=== PATIENT | male | born 1945 | race Caucasian/White ===

== ENCOUNTER 2017-05-03 14:36 | Emergency (ER) | payer OTHER ==
[~2017-05-03] VITALS: Ht 180.3 cm; Wt 151.0 kg
[~2017-05-03 14:36] MED LIST: ALLO300 PO; CLON-481 PO; HYDR50TA15 PO; METO100T PO
[2017-05-03 14:49] VITALS: BP 192/67; PULSE 87; RESP 22; TEMP 97.9; O2SAT 97
[2017-05-03 14:56] VITALS: O2SAT 97
--- NOTE | 2017-05-03 14:59 | PD ---
HPI Chief Complaint: Numbness/Tingling Time Seen by Provider: 14:42 Travel History International Travel<30 days: No Contact w/Intl Traveler<30days: No Traveled to known affect area: No History of Present Illness HPI This patient had a extremely brief episode. He was at home about 45 minutes ago and had a literally 2 second spell where he had a pain as well as paresthesia in his left arm. Started just above his elbow and went down his arm in a strip through the end of the middle finger. No muscle weakness or sensory loss. No other areas were affected. He denies confusion or speech slurring or headache or head injury or fever. Symptoms severity was moderate but extremely brief. No history of CVA or TIA. He takes a baby aspirin daily. He has difficult to control blood pressure. He is 192 systolic at this time [facility] Past Medical History Hx Anticoagulant Therapy: Yes (81 MG ASA) High Cholesterol: Yes Diabetes: Yes (TYPE 2) Patient Takes Glucophage: Yes Diminished Hearing: No Gout: Yes Hypertension: Yes Medical other: Yes (SKIN CA) Immunizations Current: Yes Tetanus Vaccination: > 5 Years Influenza Vaccination: Yes Past Surgical History Eye Surgery: Yes (LENS IMPLANT) Joint Replacement: Yes Social History Alcohol Use: Yes (~2 BEERS DAILY) Tobacco Use: No Substance Use: No Allergies-Medications (Allergen,Severity, Reaction): Coded Allergies: No Known Allergies (Verified , 05/03/17) Reported Meds & Prescriptions Reported Meds & Active Scripts Active Reported Lasix (Furosemide) 20 Mg Tab 20 Mg PO -- Bumetanide 0.5 Mg Tab 0.5 Mg PO DAILY Lipitor (Atorvastatin Calcium) 20 Mg Tab 20 Mg PO HS Flomax (Tamsulosin HCl) 0.4 Mg Cap 0.4 Mg PO HS Allopurinol 300 Mg Tab 300 Mg PO DAILY Amitriptyline (Amitriptyline HCl) 10 Mg Tab 10 Mg PO HS Glimepiride 1 Mg Tab 1 Mg PO DAILY Take with breakfast or first main meal Amlodipine (Amlodipine Besylate) 5 Mg Tab 5 Mg PO DAILY Lisinopril 10 Mg Tab 10 Mg PO BID Metoprolol Tartrate 100 Mg Tab 100 Mg PO BID Hydralazine HCl 25 Mg Tablet 50 Mg PO TID Clonidine (Clonidine HCl) 0.3 Mg Tab 0.3 Mg PO Q8HR Review of Systems General / Constitutional: No: Fever Eyes: No: Visual changes HENT: No: Headaches Cardiovascular: Positive: Edema, No: Chest Pain or Discomfort Respiratory: No: Shortness of Breath Gastrointestinal: No: Abdominal Pain Genitourinary: No: Dysuria Musculoskeletal: Positive: Edema, Pain Skin: No Rash Neurologic: Positive: Paresthesia, No: Weakness Psychiatric: No: Depression Endocrine: No: Polydipsia Hematologic/Lymphatic: No: Easy Bruising Physical Exam Narrative GENERAL: Well-nourished, well-developed patient in no apparent distress. SKIN: Focused skin assessment reveals no rash and nodules. Skin is Warm and dry. Scabbed lesion on the nose where he had skin cancer removed HEAD: Atraumatic. Normocephalic. EYES: Pupils equal and round. No scleral icterus. No injection or drainage. ENT: No nasal bleeding or discharge. Mucous membranes pink and moist. NECK: Trachea midline. No JVD. CARDIOVASCULAR: Regular rate and rhythm. No murmur appreciated. RESPIRATORY: No accessory muscle use. Clear to auscultation. Breath sounds equal bilaterally. GASTROINTESTINAL: Abdomen soft, obese, non-tender, nondistended. Hepatic and splenic margins not palpable. MUSCULOSKELETAL: No obvious deformities. No clubbing. No cyanosis. Symmetric pitting edema the feet ankles and lower legs with hyperpigmentation stasis. NEUROLOGICAL: Awake and alert. No obvious cranial nerve deficits. Motor grossly within normal limits. Normal speech. Sensation intact in the arms. No facial droop. PSYCHIATRIC: Appropriate mood and affect; insight and judgment normal. Data Data Last Documented VS Vital Signs Date Time Temp Pulse Resp B/P Pulse Ox O2 Delivery O2 Flow Rate FiO2 05/03/17 15:17 77 20 148/60 97 Room Air 05/03/17 14:49 97.9 Orders Complete Blood Count With Diff (05/03/17 14:52) Basic Metabolic Panel (Bmp) (05/03/17 14:52) Ecg Monitoring (05/03/17 14:52) Iv Access Insert/Monitor (05/03/17 14:52) Oximetry (05/03/17 14:52) Sodium Chloride 0.9% Flush (Ns Flush) (05/03/17 15:00) Labetalol Inj (Trandate Inj) (05/03/17 15:00) Labs Laboratory Tests Test 05/03/17 15:00 White Blood Count 6.7 TH/MM3 Red Blood Count 3.76 MIL/MM3 Hemoglobin 11.5 GM/DL Hematocrit 34.5 % Mean Corpuscular Volume 91.6 FL Mean Corpuscular Hemoglobin 30.6 PG Mean Corpuscular Hemoglobin 33.4 % Concent Red Cell Distribution Width 15.0 % Platelet Count 160 TH/MM3 Mean Platelet Volume 9.1 FL Neutrophils (%) (Auto) 62.2 % Lymphocytes (%) (Auto) 23.9 % Monocytes (%) (Auto) 8.3 % Eosinophils (%) (Auto) 5.1 % Basophils (%) (Auto) 0.5 % Neutrophils # (Auto) 4.2 TH/MM3 Lymphocytes # (Auto) 1.6 TH/MM3 Monocytes # (Auto) 0.6 TH/MM3 Eosinophils # (Auto) 0.3 TH/MM3 Basophils # (Auto) 0.0 TH/MM3 CBC Comment DIFF FINAL Differential Comment Sodium Level 141 MEQ/L Potassium Level 4.3 MEQ/L Chloride Level 106 MEQ/L Carbon Dioxide Level 28.5 MEQ/L Anion Gap 7 MEQ/L Blood Urea Nitrogen 42 MG/DL Creatinine 2.00 MG/DL Estimat Glomerular Filtration 33 ML/MIN Rate Random Glucose 139 MG/DL Calcium Level 9.0 MG/DL MDM Medical Decision Making Medical Screen Exam Complete: Yes Emergency Medical Condition: Yes Medical Record Reviewed: Yes Differential Diagnosis Paresthesia, peripheral neuropathy, CVA, TIA, hypertensive urgency Narrative Course I have reviewed the patient's electronic medical record. Patient is neurologically intact. He had extremely brief 2 second spell but no muscle weakness or sensory loss. I do not think this is clinically consistent with stroke or TIA or ACS He seems to have had Pain like a stinger of some sort. He has accelerated hypertension on arrival. However on recheck blood pressure 148/60 Extended cardiac monitoring reveals sinus rhythm without ectopy CBC looks normal Metabolic profile shows mild renal insufficiency with creatinine of 2. He says that this is not new for him Accu-Chek reveals reasonably normal glucose On reevaluation he feels well and has no symptoms. His legs swelling is chronic and is on diuretics for that I have observed him for while but he remains in sinus rhythm on the monitor and asymptomatic. He should discuss with his primary physician tomorrow and get follow-up. We discussed signs and symptoms of stroke and he will return if any occur. Diagnosis Primary Impression: Neuropathic pain Additional Impressions: Paresthesia of arm Accelerated hypertension Renal insufficiency Additional Instructions: The patient was advised to follow up with their physician and return if they worsen. Check and record blood pressure daily Med/Other Pt SpecificInfo: Other Disposition: 01 DISCHARGE HOME Condition: Stable Nile Moran MD May 03, 2017 14:59
[2017-05-03] MEDS ORDERED: CLON0.3T PO (15:00)
[2017-05-03] MEDS ORDERED: AMIT10TA6 PO (15:00)
[2017-05-03] MEDS ORDERED: ALLO300T2 PO (15:00)
[2017-05-03] MEDS ORDERED: BUME0.5T PO (15:00)
[2017-05-03] MEDS ORDERED: FURO1TAB62 PO (15:00)
[2017-05-03] MEDS ORDERED: METO100T PO (15:00)
[2017-05-03] MEDS ORDERED: LIPI20TA PO (15:00)
[2017-05-03] MEDS ORDERED: HYDR-3799 PO (15:00)
[2017-05-03] MEDS ORDERED: AMLO5TAB2 PO (15:00)
[2017-05-03] MEDS ORDERED: GLIM1TAB PO (15:00)
[2017-05-03] MEDS ORDERED: TAMS5CAP PO (15:00)
[2017-05-03] MEDS ORDERED: LISI10TA3 PO (15:00)
[2017-05-03] MEDS ORDERED: SODIUM CHLORIDE 0.9% FLUSH 10 ML FLUSH IVF PRN (15:00)
[2017-05-03] MEDS ORDERED: LABETALOL HCL 100 MG/20 ML VIAL IV PUSH ONE (15:00)
[2017-05-03 15:07] LABS: AUTOMATED NEUTROPHIL # 4.2 TH/MM3 (1.8-7.7); BASOPHIL % 0.5 % (0.0-2.0); EOSINOPHIL # 0.3 TH/MM3 (0-0.4); EOSINOPHIL % 5.1 % (0.0-4.0); HEMATOCRIT 34.5 % (39.0-51.0); HEMO FLAGS DIFF FINAL; LYMPH % 23.9 % (9.0-44.0); LYMPHOCYTE # 1.6 TH/MM3 (1.0-4.8); MEAN CELL VOLUME 91.6 FL (80.0-100.0); MEAN CORPUSCULAR HEMOGLOBIN 30.6 PG (27.0-34.0); MEAN CORPUSCULAR HGB CONC 33.4 % (32.0-36.0); MONO % 8.3 % (0.0-8.0); NEUT % 62.2 % (16.0-70.0); PLATELET COUNT 160 TH/MM3 (150-450); RED BLOOD COUNT 3.76 MIL/MM3 (4.50-5.90); WHITE BLOOD COUNT 6.7 TH/MM3 (4.0-11.0)
[2017-05-03 15:14] LABS: POTASSIUM 4.3 MEQ/L (3.5-5.1)
[2017-05-03 15:17] VITALS: BP 148/60; PULSE 77; RESP 20; O2SAT 97
[2017-05-03 15:17] LABS: BICARBONATE 28.5 MEQ/L (21.0-32.0)
== END 2017-05-03 16:01 | disposition home or self-care (01) ==
LOC: PHED 14:36
DX: M79.2 Neuralgia and neuritis, unspecified (principal); R20.2 Paresthesia of skin; I10 Essential (primary) hypertension; N28.9 Disorder of kidney and ureter, unspecified
CPT/HCPCS: 80048; 85025; 99283